=== PATIENT | female | born 1935 | race Caucasian/White ===

== ENCOUNTER 2018-06-26 11:16 | Day surgery (SDC) | payer MEDICARE, OTHER ==
[~2018-06-26] VITALS: Ht 154.9 cm; Wt 54.4 kg
[~2018-06-26 11:16] MED LIST: ASPIRIN REGIMEN81 MG PO; CLARITIN10 M1 PO; COREG12.5 MG PO; IMODIUM2 MG PO; VITAMIN B123000 MCG PO; VITAMIN D31000 UNI1 PO; VOLTAREN1%GEL TOP; ZOCOR10 MG PO
[2018-06-26 15:09] VITALS: BP 134/63
== END 2018-06-26 14:58 | disposition home or self-care (01) ==
LOC: ENDO 11:16 → ORM 15:20 → ENDO 15:20 → ORM 16:45 → ENDO 16:45 → ORM 17:30
PROVIDERS: ATTEND Internal Medicine Gastroenterology
PROC: 0DBK8ZX Excision of Ascending Colon, Via Natural or Artificial Opening Endoscopic, Diagnostic (ICD-10-PCS; principal; 2018-06-26)
PROC: 0DBL8ZX Excision of Transverse Colon, Via Natural or Artificial Opening Endoscopic, Diagnostic (ICD-10-PCS; 2018-06-26)
PROC: 0DBE8ZX Excision of Large Intestine, Via Natural or Artificial Opening Endoscopic, Diagnostic (ICD-10-PCS; 2018-06-26)
DX: K63.5 Polyp of colon (principal); K57.30 Diverticulosis of large intestine without perforation or abscess without bleeding; Q43.8 Other specified congenital malformations of intestine; K63.3 Ulcer of intestine; K64.8 Other hemorrhoids; K64.4 Residual hemorrhoidal skin tags; I10 Essential (primary) hypertension; E78.00 Pure hypercholesterolemia, unspecified; Z86.010 Personal history of colon polyps; Z80.0 Family history of malignant neoplasm of digestive organs